=== PATIENT | male | born 1945 | race Caucasian/White ===

== ENCOUNTER 2022-06-06 09:16 | Observation (INO) ==
--- NOTE | 2022-05-14 13:14 | PAT Medication Instructions ---
Medication Instructions Date of Service May 14, 2022 Home Medications Kristal 1,400 mg PO QAM amlodipine 5 mg tablet 5 mg PO HS ascorbic acid (vitamin C) 500 mg tablet (Vitamin C) 500 mg PO QAM aspirin 81 mg capsule 81 mg PO QAM atorvastatin 40 mg tablet 40 mg PO HS famotidine 20 mg tablet 20 mg PO HS fenofibrate nanocrystallized 145 mg tablet 145 mg PO QAM finasteride 5 mg tablet 5 mg PO HS glipizide 10 mg tablet 10 mg PO BID hydrochlorothiazide 12.5 mg tablet 12.5 mg PO QAM losartan 100 mg tablet 100 mg PO HS meloxicam 15 mg tablet 15 mg PO QAM metformin 1,000 mg tablet 1,000 mg PO BID Centrum Men 50 Plus Minis) 1 tab PO QAM omega 3-dha 60 mg-epa 90 mg-fish oil 500 mg capsule, delayed release (Fish Oil) 1 cap PO QAM omeprazole 20 mg tablet,delayed release 20 mg PO QAM terazosin 10 mg capsule 10 mg PO HS ASK your surgeon for instructions meloxicam 15 mg tablet 15 mg PO QAM ASK your prescriber and surgeon aspirin 81 mg capsule 81 mg PO QAM STOP taking 2 weeks before surgery (or as soon as possible if surgery is within 2 weeks) Kristal 1,400 mg PO QAM omega 3-dha 60 mg-epa 90 mg-fish oil 500 mg capsule, delayed release (Fish Oil) 1 cap PO QAM STOP taking 48 hours before surgery fenofibrate nanocrystallized 145 mg tablet 145 mg PO QAM DO NOT take the morning of surgery ascorbic acid (vitamin C) 500 mg tablet (Vitamin C) 500 mg PO QAM glipizide 10 mg tablet 10 mg PO BID hydrochlorothiazide 12.5 mg tablet 12.5 mg PO QAM metformin 1,000 mg tablet 1,000 mg PO BID Centrum Men 50 Plus Minis) 1 tab PO QAM Take morning of surgery With a small sip of water, OTHERWISE NOTHING TO EAT OR DRINK AFTER MIDNIGHT: omeprazole 20 mg tablet,delayed release 20 mg PO QAM Take evening before surgery amlodipine 5 mg tablet 5 mg PO HS atorvastatin 40 mg tablet 40 mg PO HS famotidine 20 mg tablet 20 mg PO HS finasteride 5 mg tablet 5 mg PO HS glipizide 10 mg tablet 10 mg PO BID losartan 100 mg tablet 100 mg PO HS metformin 1,000 mg tablet 1,000 mg PO BID terazosin 10 mg capsule 10 mg PO HS Other Notes If you have any questions please call us at [phone] or [phone] or [phone] or [phone]
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
[~2022-06-06 09:16] MED LIST: ACETAMINOPHEN 500 MG TAB PO SCH; BUPIVACAINE 0.5 % 5 MG/1 ML PF 10ML VIAL ONE; CeleBREX 200 MG CAP PO SCH; FAMOTIDINE 20 MG TAB PO SCH; GABAPENTIN 300 MG CAP PO SCH; METOCLOPRAMIDE HCL 10 MG TABLET PO SCH; SODIUM CHLORIDE 0.9% 1,000 ML IV SCH; SODIUM CHLORIDE 0.9% 1000ML IV SCH; TRANEXAMIC ACID 1,000 MG **IV Intra-op IV SCH; TRANEXAMIC ACID 1,000 MG **IV Pre-op IV SCH; ceFAZolin 2000MG 2,000 MG/15 ML SYR IV SCH
[2022-06-06] MEDS ORDERED: MIDAZOLAM HCL 1 MG/ML 2ML VIAL ONE (09:34)
[2022-06-06] MEDS ORDERED: ROCURONIUM BROMIDE 10 MG/ML 5 ML VIAL IV ONE ×2 (09:34→14:33)
[2022-06-06] MEDS ORDERED: PROPOFOL IV EMULSION 10 MG/ML 20 ML VIAL IV ONE (09:34)
[2022-06-06] MEDS ORDERED: LIDOCAINE 2% MPF LOCAL 5 ML VIAL ONE (09:34)
[2022-06-06] MEDS ORDERED: fentaNYL citrate PF 100 MCG/2 ML VIAL ONE (09:34)
--- NOTE | 2022-06-06 09:34 | History & Physical Bridge Note ---
Date of Service June 06, 2022 History & Physical Bridge Note I have examined the patient, reviewed the History & Physical and in the interval since the performance of the History & Physical I have noted the following changes of clinical significance: no changes noted
[2022-06-06] MEDS ORDERED: HYDROmorphone INJ 2 MG/ML SYR/VIAL IV PRN (10:51)
[2022-06-06] MEDS ORDERED: ePHEDrine sulfate 50 MG/ML AMP IV PRN (10:51)
[2022-06-06] MEDS ORDERED: fentaNYL citrate PF 100 MCG/2 ML VIAL IV PRN (10:51)
[2022-06-06] MEDS ORDERED: ONDANSETRON INJ 2 MG/ML 2 ML VIAL IV PRN ×2 (10:51→16:14)
[2022-06-06] MEDS ORDERED: ATROPINE SULFATE 0.1 MG/ML 10ML SYR IV PRN (10:51)
--- NOTE | 2022-06-06 12:50 | Anesthesiology Progress Note ---
Date of Service June 06, 2022 Anesthesia Post Procedure Vital Signs Vital Signs: Temp Pulse Resp BP Pulse Ox O2 Del Method 06/06/22 09:39 36.9 C 94 H 20 165/61 H 97 Room Air Transfer of Care Handoff Completed per policy Notes Mental Status: alert / awake / arousable and participated in evaluation Patient Amnestic to Procedure: Yes Nausea / Vomiting: adequately controlled Pain: adequately controlled Airway Patency, RR, SpO2: stable & adequate BP & HR: stable & adequate Hydration State: stable & adequate Anesthetic Complications: no major complications apparent and Pt Satisfied with anesthetic care
[2022-06-06] MEDS ORDERED: ONDANSETRON INJ 2 MG/ML 2 ML VIAL ONE (12:53)
[2022-06-06] MEDS ORDERED: NEOSTIGMINE METHYLSULFATE 1 MG/ML 10ML VIAL ONE (14:13)
[2022-06-06] MEDS ORDERED: GLYCOPYRROLATE 0.2 MG/ML VIAL ONE (14:13)
--- NOTE | 2022-06-06 15:23 | Post Operative Brief Note ---
Immediate Post Op Note v1 Date of Surgery June 06, 2022 Pre & Post Diagnosis Operation Date: 06/06/22 11:40 Pre-Op Diagnosis: Left Shoulder Rotator Cuff Arthropathy, massive irreparable rotator cuff tear. Post-Op Diagnosis: Left Shoulder Rotator Cuff Arthropathy, massive irreparable rotator cuff tear, subacute biceps rupture with tenosynovitis. I identified the patient and participated in the time-out.: Yes Procedure Operation Date: 06/06/22 11:40 Actual Procedures p Left Reverse Total Shoulder Arthroplasty(Left), biceps tenodesis tenosynovectomy.- Orestes Spear MD Surgeon Orestes Spear MD H[employer] Leader Pavan POPE Estimated Blood Loss 125 Findings Consistent with Post-Op Diagnosis Specimens Humeral head Drains Hemovac Drain Anesthesia Type General Regional Complications none Disposition Disposition: Recovery Room Overlapping Procedure I was immediately available: during the entire case.
--- NOTE | 2022-06-06 15:42 | Operative Report ---
Post Operative Report Pre & Post Diagnosis Operation Date: 06/06/22 11:40 Pre-Op Diagnosis: Left Shoulder Rotator Cuff Arthropathy, massive irreparable rotator cuff tear. Post-Op Diagnosis: Left Shoulder Rotator Cuff Arthropathy, massive irreparable rotator cuff tear w ith anterior shoulder instability and subacute long head biceps rupture with biceps tenosynovitis. I identified the patient and participated in the time-out.: Yes Procedure Operation Date: 06/06/22 11:40 Actual Procedures p Left Reverse Total Shoulder Arthroplasty(Left), biceps tenodesis- Orestes Spear MD Surgeon Orestes Spear MD [employer] POPE Estimated Blood Loss 125 Findings Consistent with Post-Op Diagnosis Specimens Humeral head Drains 2 Hemovac Anesthesia Type General Regional Complications none Disposition Accompanied Patient To Recovery: No Indications 77-year-old male with acute on chronic injury to his left shoulder. Patient has significant weakness and chronic pain in his shoulder. MRI demonstrates a massive rotator cuff tear from the upper subscapularis through the infraspinatus with retraction of those tendon tears that were involved. There is intact teres minor and some of the lower fibers of the subscapularis and capsule are intact. Description of Procedure The patient was taken to the operating room and anesthetized under regional block and general anesthetic. The patient was positioned on the operating table in a 30 beach chair position with a towel roll under the medial border of the left scapula. The arm was draped free to be able to manipulate the shoulder as needed. The left upper extremity was prepped and draped in usual sterile fashion. Exam demonstrated anterior instability with abduction external rotation with a substantial anterior subluxation close to full dislocation with that motion. Patient had good passive range of motion otherwise with full range of motion.. An anterior deltopectoral approach was performed. A longitudinal incision was made in the deltopectoral interval. The skin was incised sharply. Subcutaneous flaps were elevated off the fascia. The cephalic vein was dissected out and retracted lateral with the deltoid. The clavipectoral fascia was divided at the lateral margin of the conjoined tendon and extended up to the CA ligament. The following findings were noted: The upper subscapularis was torn and there was a few fibers of the lower subscapularis and thin capsule still attached to the lesser tuberosity area. There was chronic bursitis over the rotator cuff. The superior rotator cuff had a large retracted supraspinatus tendon and infraspinatus tendon tear with marked degeneration of the ends of the tendon tissue which would have been nonrepairable. The teres minor still intact. There were multiple spurs over the lesser tuberosity upper aspect and articular margin consistent with most likely chronic rotator cuff tear and some acute tear including a subacute biceps rupture.. The upper centimeter of the pectoralis was released for inferior exposure. A self-retaining retractor was placed. The biceps tendon findings demonstrated th at there was marked biceps tenosynovitis surrounding the end of the biceps which was just at the level of the falciform ligament and pectoralis tendon. The end had frayed tissue and no major scar tissue over it which would be more consistent with a subacute type tear that happened more recently. I did a thorough tenosynovectomy in the biceps sheath where there was thickened biceps tendon sheath tissue and inflamed tissue in that area. I then grabbed the biceps tendon with an Allis clamp and freed up any scarred tenosynovium off the biceps I was able to retract it proximally and then tenodesis it to the pectoralis with [id number] #2 FiberWire suture. The axillary nerve was identified with a tug test. The subscapularis tendon was then taken down off of the lesser tuberosity subperiosteally with a peel technique, a Vicryl traction suture was placed and a subperiosteal dissection was performed along the neck of the humerus as the arm was gradually externally rotated exposing the humeral head. The humeral head findings demonstrated some grade 2 articular changes at the superior head otherwise intact articular cartilage and some small inferior osteophytes.. retractors were readjusted and the inferior osteophytes were all resected using a small rongeur. Osteophytes over the lesser tuberosity and greater tuberosity area were removed with the rongeur. Jacinto elevator was used to assist in releasing the capsule off the neck of the humerus. A Fukuda retractor was placed into the joint retracting the humeral head posterior. Glenoid findings demonstrated minor arthritic changes intact articular cartilage. Absent biceps tendon.. The labrum was resected. an anterior- inferior and posterior inferior capsular release were performed with electrocautery and a Jacinto elevator on bone with the axillary nerve protected inferiorly by the retractor. Attention was then taken to the humeral preparation. The cutting guide was placed into the humeral head. It was positioned at 20 of retroversion. Oscillating saw was used to resect the humeral head giving the cut above the level of the posterior rotator cuff insertion site. The humerus was then prepared for the stem. I used the ascend flex stem from [employer]. The sizing broaches were used followed by trial broaches up to a size 4B long which had the appropriate fit and fill. The appropriate sized cut protector was placed. The humerus was then retracted posterior to the glenoid. The glenoid was sized for a 29 baseplate. The guide for the baseplate was positioned in a 10 inferior tilt and the central drill ho le was made. The reamer for the 29 baseplate was used. The central drill was widened for the peg. The aequalis hydroxyapatite-coated 29 mm baseplate with a standard post was impacted into position. The base plate was transfixed with superior and inferior locking screws and anterior and posterior compression screws with stable fixation. The fan reamer was used for the 42 millimeter glenoid sphere. After irrigation the 42 mm standard symmetrical glenoid sphere was impacted onto the baseplate and the security screw was tightened. Attention was taken back to the humerus. The cut protector was removed and the plus or high offset humeral tray trial was assembled to the trial stem rotated appropriately to get bony coverage and then screwed in position. A trial reduction was performed. A +6, 42 mm reversed trial insert demonstrated good stability and no shuck. The trials were removed. 3 drill holes are made into the harder bone in the bicipital groove area and 3 #5 FiberWire sutures were placed transosseously. The canal was irrigated with pulse saline solution . The final component was assembled. The final component was 4B long PTC stem assembled to +0 high offset tray and a 42+6 mm reversed polyethylene insert. This was then impacted into the humerus with a tight press-fit. It was reduced to the glenoid sphere. Stability was verified. Subscapularis and capsule was repaired in 1 layer with the #5 FiberWire sutures using Jimi-Billy suture technique. The pectoralis was repaired with #2 FiberWire [id number] sutures reinforcing the biceps tendon tenodesis. The arm was taken through a range of motion which demonstrated 150 degrees flexion 100 degrees abduction and 60 degrees external rotation without any tension on repair. The implant was stable through the range of motion tested. The wound was copiously irrigated. 2 Hemovac drains were placed. The deltopectoral interval was closed with [id number] #1 Vicryl sutures. The subcutaneous tissues were closed with 2- 0 Vicryl sutures. The skin was closed with chi. Sterile dressings were applied and a shoulder immobilizer. Chidi POPE, my physician expanded function dental assistant acted as first aid director throughout the procedure .He performed functions including patient positioning, arm positioning, prepping and draping, soft tissue retraction, instrument management, suture management and performed the subcutaneous and skin closure and will participate in the postoperative care of the patient. I attest to the content of the Intraoperative Record and any orders documented therein. Any exceptions are noted below.
--- NOTE | 2022-06-06 16:12 | XRay Report ---
LEFT SHOULDER 2 VIEWS CLINICAL HISTORY: Postoperative examination. FINDINGS: 2 portable views of the left shoulder are obtained. The skeletal structures are osteopenic. A left shoulder arthroplasty is in near anatomic alignment. No acute fracture is seen. Mild degenera tive change is noted at the acromioclavicular joint. Skin clips, a surgical drain, subcutaneous gas, and soft tissue swelling overlying the left shoulder are expected postoperative findings. The left nancy ng parenchyma is clear as visualized noting basilar atelectasis. IMPRESSION: Expected postoperative findings status post left shoulder arthroplasty. No acute fracture is seen. Electronically signed by: Jeff Crain M.D. 06/06/2022 4:11 PM
[2022-06-06] MEDS ORDERED: MAGNESIUM HYDROXIDE SUSP 30 ML UDC PO PRN (16:14)
[2022-06-06] MEDS ORDERED: HYDROmorphone INJ 0.5 MG/0.5 ML SYR IV PRN (16:14)
[2022-06-06] MEDS ORDERED: NALOXONE HCL 0.4 MG/1 ML VIAL/CARP IV PRN (16:14)
[2022-06-06] MEDS ORDERED: PHARMACY GLYCEMIC MGMT CONSULT PRN (16:14)
[2022-06-06] MEDS ORDERED: bisacodyL 10 MG SUPP PR PRN (16:14)
[2022-06-06] MEDS ORDERED: METOCLOPRAMIDE HCL INJ 5 MG/ML 2 ML VIAL IV PRN (16:14)
--- NOTE | 2022-06-06 16:17 | Anesthesiology Progress Note ---
Date of Service June 06, 2022 Anesthesia Post Procedure Vital Signs Vital Signs: Temp Pulse Pulse Resp BP Pulse Ox O2 Del Method 06/06/22 15:40 73 18 122/64 94 Oxymask 06/06/22 15:51 36.4 C L 68 14 116/58 L 94 Nasal Cannula 06/06/22 15:30 68 15 131/55 L 95 Oxymask 06/06/22 15:22 36.0 C L 80 18 123/58 L 98 Oxymask 06/06/22 09:39 36.9 C 94 H 20 165/61 H 97 Room Air O2 Flow Rate 06/06/22 15:40 3 06/06/22 15:51 3 06/06/22 15:30 4 06/06/22 15:22 5 06/06/22 09:39 Transfer of Care Handoff Completed per policy Notes Mental Status: alert / awake / arousable and participated in evaluation Patient Amnestic to Procedure: Yes Nausea / Vomiting: adequately controlled Pain: adequately controlled Airway Patency, RR, SpO2: stable & adequate BP & HR: stable & adequate Hydration State: stable & adequate Anesthetic Complications: no major complications apparent and Pt Satisfied with anesthetic care
[2022-06-06] MEDS: SODIUM CHLORIDE 0.9% 1000ML 1,000 ML IV SCH (16:27)
[2022-06-06] MEDS: INSULIN ASPART PER UNIT CHARGE SC SCH ×2 (17:13→21:50)
[2022-06-06] MEDS: DOCUSATE SODIUM 100 MG CAP PO SCH (19:51)
[2022-06-06] MEDS: ceFAZolin 2000MG 2,000 MG/15 ML SYR IV SCH (19:56)
--- NOTE | 2022-06-06 20:18 | Pharmacy Report ---
Pharmacy Glycemic Short Note 2 - Date of Service June 06, 2022 - Glycemic Short BSG Results (Last 24 hours): 06/06/22 06/06/22 06/06/22 09:47 15:25 16:40 POC Glucose 188 H 164 H 157 H OUTPATIENT ANTIDIABETIC REGIMEN: * glipizide, metformin * A1c 6.2% ASSESSMENT: * 77 year old s/p shoulder arthroplasty, managed on oral antidiabetic agents at home. Pharmacy consulted for glycemic management. Postop BSGs in 160s, will add novolog ACHS. No steroids given * Likely could resume oral agents tomorrow if BSGs stable PLAN FOR INPATIENT GLYCEMIC CONTROL: * Hold outpatient oral diabetes medications * Basal insulin * Lantus - hold * Bolus insulin * NovoLog per scale ACHS or Q6hrs while NPO * Goal Range: Low 110 mg/dL - High 140 mg/dL * Correction Factor: 30 mg/dL/unit * Nutritional / Prandial insulin per carb ratio of 1 unit per 12 grams CHO consumed
[2022-06-06] MEDS ORDERED: FAMOTIDINE 20 MG TAB PO SCH (21:00)
[2022-06-06] MEDS ORDERED: SENNA 8.6 MG TAB PO SCH (21:00)
[2022-06-06] MEDS ORDERED: TERAZOSIN HCL 5 MG CAP PO SCH (21:00)
[2022-06-06] MEDS ORDERED: ATORVASTATIN 40 MG TAB PO SCH (21:00)
[2022-06-06] MEDS ORDERED: FINASTERIDE 5 MG TAB PO SCH (21:00)
[2022-06-06] MEDS: ACETAMINOPHEN 500 MG TAB PO SCH (21:47)
[2022-06-07] MEDS: oxyCODONE HCL IR 5 MG TAB (IMMEDIATE RELEASE) PO PRN ×3 (01:49→12:41)
[2022-06-07] MEDS: SODIUM CHLORIDE 0.9% 1000ML 1,000 ML IV SCH (01:52)
[2022-06-07] MEDS: ceFAZolin 2000MG 2,000 MG/15 ML SYR IV SCH (05:27)
[2022-06-07] MEDS: ACETAMINOPHEN 500 MG TAB PO SCH (05:27)
[2022-06-07 06:18] LABS: Basophils # (auto) 0.02 K/uL (0-0.2); Basophils % (auto) 0.2 %; Eosinophils # (auto) 0.11 K/uL (0-0.50); Eosinophils % (auto) 1.3 %; Hematocrit (blood only) 29.9 % (42.0-52.0); Hemoglobin 10.2 g/dl (14.0-18.0); Immature Granulocytes # (auto) 0.04 K/uL (0.01-0.20); Immature Granulocytes % (auto) 0.5 %; Lymphocytes # (auto) 0.74 K/uL (1.2-3.4); Lymphocytes % (auto) 8.6 %; Mean Corpuscular Hemoglobin 30.2 pg (25.0-34.0); Mean Corpuscular Hgb Conc 34.1 g/dL (32.0-36.0); Mean Corpuscular Volume 88.5 fL (80.0-100.0); Mean Platelet Volume 9.9 fL (9.4-12.4); Neutrophils # (auto) 7.07 K/uL (1.40-6.50); Neutrophils % (auto) 82.4 %; Platelet Count 194 K/uL (130-400); RDW Coefficient of Variation 13.3 % (11.5-14.5); RDW Standard Deviation 43.4 fL (36.4-46.3); Red Blood Count 3.38 M/uL (4.70-6.10); White Blood Count 8.58 K/ul (4.8-10.8)
[2022-06-07 06:33] LABS: BUN Creatinine Ratio 15.3 (10-20); Calcium 8.6 mg/dl (8.6-10.3); Creatinine Clr Calc Pharmacy 51.5 ml/min; Est GFR (African American) 54.7 ml/min; Est GFR (Non-African American) 47.2 ml/min; Potassium 3.7 mmol/L (3.5-5.1)
[2022-06-07] MEDS: DOCUSATE SODIUM 100 MG CAP PO SCH (07:31)
[2022-06-07] MEDS ORDERED: GLUCOSE 40% GEL 15 GM TUBE PO PRN (07:45)
[2022-06-07] MEDS ORDERED: GLUCAGON FOR INJ 1 MG VIAL IM PRN (07:45)
[2022-06-07] MEDS ORDERED: GLUCOSE 10 TAB/TUBE PO PRN (07:45)
[2022-06-07] MEDS ORDERED: CARBOHYDRATES FOR HYPOGLYCEMIA PO PRN (07:45)
[2022-06-07] MEDS ORDERED: DEXTROSE 50% 50 ML SYRINGE IV PRN (07:45)
--- NOTE | 2022-06-07 08:03 | Orthopedic Progress Note ---
Date of Service June 07, 2022 Assessment & Plan (1) Rotator cuff arthropathy of left shoulder: Plan: Postop day #1 left reverse total shoulder arthroplasty -PT/OT: No formal therapy on the shoulder at this time. Patient will perform home exercises as instructed. -DVT prophylaxis: SCDs, aspirin 81 mg daily -Pain management as written -AM labs: Hemoglobin 10.2 this morning from 11.1 preop. His creatinine is at 1.44 which is improved from his baseline preop labs of 2.05. Discharge plan: Plan on discharge home today. Admission and Anticipated Discharge Date Admission Date: June 06, 2022 Subjective Patient is postop day #1 left reverse total shoulder arthroplasty. He is doing well this morning. Had some pain overnight but now is much better controlled. No current complaints. Denies chest pain, shortness of breath, dizziness/lightheadedness, headaches, nausea/vomiting/diarrhea. Physical Exam Physical Exam: Left shoulder: Dressing is clean, dry, intact. Sling in place. Fingers are mobile with good fuel cell systems engineer strength. Distally neurovascular status and sensation grossly intact. Constitutional: WD/WN, vitals as above Results & Data Vital Signs (Past 12 Hours) Vital Signs Temp Pulse Resp BP Pulse Ox O2 Del Method 06/07/22 07:24 36.7 C 88 17 150/73 H 93 Room Air 06/07/22 03:44 36.6 C 82 18 150/75 H 96 Room Air 06/06/22 23:39 36.5 C 82 18 134/70 95 Room Air Laboratory Results Lab Results 06/06/22 06/06/22 06/06/22 Range/Units 09:26 09:47 15:25 WBC (4.8-10.8) K/ul RBC (4.70-6.10) M/uL Hgb (14.0-18.0) g/dl Hct (42.0-52.0) % MCV (80.0-100.0) fL MCH (25.0-34.0) pg MCHC (32.0-36.0) g/dL RDW Std Deviation (36.4-46.3) fL RDW Coeff of Demian (11.5-14.5) % Plt Count (130-400) K/uL MPV (9.4-12.4) fL Immature Gran % (Auto) % Neut % (Auto) % Lymph % (Auto) % [place] % (Auto) % Eos % (Auto) % Baso % (Auto) % Neut # (Auto) (1.40-6.50) K/uL Lymph # (Auto) (1.2-3.4) K/uL [place] # (Auto) (0.11-0.59) K/uL Eos # (Auto) (0-0.50) K/uL Baso # (Auto) (0-0.2) K/uL Immature Gran # (Auto) (0.01-0.20) K/uL Sodium (136-145) mmol/L Potassium (3.5-5.1) mmol/L Chloride (98-107) mmol/L Carbon Dioxide (21-32) mmol/L Anion Gap (3-11) BUN (6-23) mg/dl Creatinine (0.6-1.4) mg/dl Est Cr Clr Drug Dosing ml/min Est GFR ( Amer) ml/min Est GFR (Non-Af Amer) ml/min BUN/Creatinine Ratio (10-20) Glucose (70-99(Fasting)) mg/dl POC Glucose 188 H 164 H (70-99) mg/dl Calcium (8.6-10.3) mg/dl SARS-CoV-2, RNA, NAAT NEGATIVE (NEGATIVE) 06/06/22 06/06/22 06/07/22 Range/Units 16:40 21:15 05:27 WBC 8.58 (4.8-10.8) K/ul RBC 3.38 L (4.70-6.10) M/uL Hgb 10.2 L (14.0-18.0) g/dl Hct 29.9 L (42.0-52.0) % MCV 88.5 (80.0-100.0) fL MCH 30.2 (25.0-34.0) pg MCHC 34.1 (32.0-36.0) g/dL RDW Std Deviation 43.4 (36.4-46.3) fL RDW Coeff of Demian 13.3 (11.5-14.5) % Plt Count 194 (130-400) K/uL MPV 9.9 (9.4-12.4) fL Immature Gran % (Auto) 0.5 % Neut % (Auto) 82.4 % Lymph % (Auto) 8.6 % [place] % (Auto) 7.0 % Eos % (Auto) 1.3 % Baso % (Auto) 0.2 % Neut # (Auto) 7.07 H (1.40-6.50) K/uL Lymph # (Auto) 0.74 L (1.2-3.4) K/uL [place] # (Auto) 0.60 H (0.11-0.59) K/uL Eos # (Auto) 0.11 (0-0.50) K/uL Baso # (Auto) 0.02 (0-0.2) K/uL Immature Gran # (Auto) 0.04 (0.01-0.20) K/uL Sodium (136-145) mmol/L Potassium (3.5-5.1) mmol/L Chloride (98-107) mmol/L Carbon Dioxide (21-32) mmol/L Anion Gap (3-11) BUN (6-23) mg/dl Creatinine (0.6-1.4) mg/dl Est Cr Clr Drug Dosing ml/min Est GFR ( Amer) ml/min Est GFR (Non-Af Amer) ml/min BUN/Creatinine Ratio (10-20) Glucose (70-99(Fasting)) mg/dl POC Glucose 157 H 141 H (70-99) mg/dl Calcium (8.6-10.3) mg/dl SARS-CoV-2, RNA, NAAT (NEGATIVE) 06/07/22 06/07/22 Range/Units 05:27 07:50 WBC (4.8-10.8) K/ul RBC (4.70-6.10) M/uL Hgb (14.0-18.0) g/dl Hct (42.0-52.0) % MCV (80.0-100.0) fL MCH (25.0-34.0) pg MCHC (32.0-36.0) g/dL RDW Std Deviation (36.4-46.3) fL RDW Coeff of Demian (11.5-14.5) % Plt Count (130-400) K/uL MPV (9.4-12.4) fL Immature Gran % (Auto) % Neut % (Auto) % Lymph % (Auto) % [place] % (Auto) % Eos % (Auto) % Baso % (Auto) % Neut # (Auto) (1.40-6.50) K/uL Lymph # (Auto) (1.2-3.4) K/uL [place] # (Auto) (0.11-0.59) K/uL Eos # (Auto) (0-0.50) K/uL Baso # (Auto) (0-0.2) K/uL Immature Gran # (Auto) (0.01-0.20) K/uL Sodium 140 (136-145) mmol/L Potassium 3.7 (3.5-5.1) mmol/L Chloride 109 H (98-107) mmol/L Carbon Dioxide 23 (21-32) mmol/L Anion Gap 8 (3-11) BUN 22 (6-23) mg/dl Creatinine 1.44 H (0.6-1.4) mg/dl Est Cr Clr Drug Dosing 51.5 ml/min Est GFR ( Amer) 54.7 ml/min Est GFR (Non-Af Amer) 47.2 ml/min BUN/Creatinine Ratio 15.3 (10-20) Glucose 178 H (70-99(Fasting)) mg/dl POC Glucose 184 H (70-99) mg/dl Calcium 8.6 (8.6-10.3) mg/dl SARS-CoV-2, RNA, NAAT (NEGATIVE)
[2022-06-07] MEDS: INSULIN ASPART PER UNIT CHARGE SC SCH ×2 (08:39→12:21)
[2022-06-07] MEDS ORDERED: LANTUS PER UNIT CHARGE SQ SCH (09:00)
[2022-06-07] MEDS ORDERED: MULTIVITAMIN TAB PO SCH (09:00)
[2022-06-07] MEDS ORDERED: ASPIRIN 81 MG ECTAB PO SCH (09:00)
[2022-06-07] MEDS ORDERED: PANTOprazole 40 MG TAB PO SCH (09:00)
[2022-06-07] MEDS ORDERED: hydroCHLOROthiazide 25 MG TAB PO SCH (09:00)
[2022-06-07] MEDS ORDERED: FENOFIBRATE NANOCRYSTALLIZED 145 MG TABLET PO SCH (09:00)
[2022-06-07] MEDS ORDERED: ASCORBIC ACID 500 MG TAB PO SCH (09:00)
--- NOTE | 2022-06-07 09:49 | Pharmacy Report ---
Pharmacy Glycemic Short Note 2 - Date of Service June 07, 2022 - Glycemic Short BSG Results (Last 24 hours): 06/06/22 06/06/22 06/06/22 09:47 15:25 16:40 Glucose POC Glucose 188 H 164 H 157 H 06/06/22 06/07/22 06/07/22 21:15 05:27 07:50 Glucose 178 H POC Glucose 141 H 184 H OUTPATIENT ANTIDIABETIC REGIMEN: * Glipizide 10 mg PO BIDM * Metformin 1000 mg PO BIDM * HbA1c: 6.2% (05/18/22) ASSESSMENT: 06/07: * Juan F received 6 units of bolus insulin last evening. BSGs were: 157 and 141 mg/dL. * Fasting BSG was 184 mg/dL this AM. Despite patient receiving no steroids will give a one time dose of basal this AM to cover for stress-induced hyperglycemia. * Tightened carb ratio slightly this AM as patient starts to tolerate diet better. 06/06: * 77 year old s/p shoulder arthroplasty, managed on oral antidiabetic agents at home. Pharmacy consulted for glycemic management. Postop BSGs in 160s, will add novolog ACHS. No steroids given * Likely could resume oral agents tomorrow if BSGs stable PLAN FOR INPATIENT GLYCEMIC CONTROL: * Hold outpatient oral diabetes medications * Basal insulin * Lantus 15 units SC x 1 * Bolus insulin * NovoLog per scale ACHS or Q6hrs while NPO * Goal Range: Low 110 mg/dL - High 140 mg/dL * Correction Factor: 30 mg/dL/unit * Nutritional / Prandial insulin per carb ratio of 1 unit per 10 grams CHO consumed
[2022-06-07] MEDS ORDERED: amLODIPine BESYLATE 5 MG TAB PO SCH (21:00)
[2022-06-07] MEDS ORDERED: LOSARTAN POTASSIUM 50 MG TAB PO SCH (21:00)
--- NOTE | 2022-06-10 18:00 | Discharge Summary ---
Date of Service June 10, 2022 Admission HPI Per Admitting Provider 77yo male with PMHx significant for HTN, high cholesterol, DM2 who presents with ongoing left shoulder pain. He has pain interfering with his daily activities. He has failed conservative measures including therapy and injections. He would like to proceed with surgical intervention. Patient denies headaches, sweats, fevers, chills, double vision, blurred vision, cough, sore throat, dysphagia, chest pain, sob, wheezing, n/v/d/c, numbness, tingling, fatigue, urinary symptoms, mood disorders. ROS positive for left shoulder pain and stiffness. Admission Exam Per Admitting Provider Constitutional: well developed and well nourished; no acute distress Eyes: PERRL, conjunctivae normal, anicteric sclerae ENMT: external ear and nose normal, oropharynx normal Neck: trachea midline, no thyromegaly Respiratory: normal respiratory effort, lungs clear to auscultation Cardiovascular: RRR, no murmur, no edema Musculoskeletal: Left shoulder: Crepitation with ROM. Tenderness anterolateral acromion. Positive impingement signs. Abduction to 150 degrees, FF to 170 degrees. Weakness and pain with strength testing. Abduciton 3+/5, FF 3+/5, ER 4-/5, IR 5-/5 Skin: no rashes, warm and dry Neurologic: patellar DTR's 2+ bilat, sensation intact Psychiatric: A+Ox3, euthymic affect Principal Diagnosis Left shoulder rotator cuff arthropathy Discharge Exam Left shoulder: Dressing is clean, dry, intact. Sling in place. Fingers are mobile with good presser all around strength. Distally neurovascular status and sensation grossly intact. Constitutional WD/WN, vitals as above Discharge Data Allergies Allergy/AdvReac Type Severity Reaction Status Date / Time No Known Allergies Allergy Verified 06/06/22 09:43 Consultations 06/06/22 05:00 Consult Hospitalist Routine Procedures Performed Operation Date: 06/06/22 11:40 Actual Procedures p Left Reverse Total Shoulder Arthroplasty(Left) - Orestes Spear MD Ordered Studies 06/06/22 05:00 US - OR guided needle placemen Routine Hospital Course (1) Rotator cuff arthropathy of left shoulder: Postop day #1 left reverse total shoulder arthroplasty -PT/OT: No formal therapy on the shoulder at this time. Patient will perform home exercises as instructed. -DVT prophylaxis: SCDs, aspirin 81 mg daily -Pain management as written -AM labs: Hemoglobin 10.2 this morning from 11.1 preop. His creatinine is at 1.44 which is improved from his baseline preop labs of 2.05. Discharge plan: Plan on discharge home today. Lab Results 06/06/22 06/06/22 06/06/22 Range/Units 09:26 09:47 15:25 WBC (4.8-10.8) K/ul RBC (4.70-6.10) M/uL Hgb (14.0-18.0) g/dl Hct (42.0-52.0) % MCV (80.0-100.0) fL MCH (25.0-34.0) pg MCHC (32.0-36.0) g/dL RDW Std Deviation (36.4-46.3) fL RDW Coeff of Demian (11.5-14.5) % Plt Count (130-400) K/uL MPV (9.4-12.4) fL Immature Gran % (Auto) % Neut % (Auto) % Lymph % (Auto) % [place] % (Auto) % Eos % (Auto) % Baso % (Auto) % Neut # (Auto) (1.40-6.50) K/uL Lymph # (Auto) (1.2-3.4) K/uL [place] # (Auto) (0.11-0.59) K/uL Eos # (Auto) (0-0.50) K/uL Baso # (Auto) (0-0.2) K/uL Immature Gran # (Auto) (0.01-0.20) K/uL Sodium (136-145) mmol/L Potassium (3.5-5.1) mmol/L Chloride (98-107) mmol/L Carbon Dioxide (21-32) mmol/L Anion Gap (3-11) BUN (6-23) mg/dl Creatinine (0.6-1.4) mg/dl Est Cr Clr Drug Dosing ml/min Est GFR ( Amer) ml/min Est GFR (Non-Af Amer) ml/min BUN/Creatinine Ratio (10-20) Glucose (70-99(Fasting)) mg/dl POC Glucose 188 H 164 H (70-99) mg/dl Calcium (8.6-10.3) mg/dl SARS-CoV-2, RNA, NAAT NEGATIVE (NEGATIVE) 06/06/22 06/06/22 06/07/22 Range/Units 16:40 21:15 05:27 WBC 8.58 (4.8-10.8) K/ul RBC 3.38 L (4.70-6.10) M/uL Hgb 10.2 L (14.0-18.0) g/dl Hct 29.9 L (42.0-52.0) % MCV 88.5 (80.0-100.0) fL MCH 30.2 (25.0-34.0) pg MCHC 34.1 (32.0-36.0) g/dL RDW Std Deviation 43.4 (36.4-46.3) fL RDW Coeff of Demian 13.3 (11.5-14.5) % Plt Count 194 (130-400) K/uL MPV 9.9 (9.4-12.4) fL Immature Gran % (Auto) 0.5 % Neut % (Auto) 82.4 % Lymph % (Auto) 8.6 % [place] % (Auto) 7.0 % Eos % (Auto) 1.3 % Baso % (Auto) 0.2 % Neut # (Auto) 7.07 H (1.40-6.50) K/uL Lymph # (Auto) 0.74 L (1.2-3.4) K/uL [place]eller # (Auto) 0.60 H (0.11-0.59) K/uL Eos # (Auto) 0.11 (0-0.50) K/uL Baso # (Auto) 0.02 (0-0.2) K/uL Immature Gran # (Auto) 0.04 (0.01-0.20) K/uL Sodium (136-145) mmol/L Potassium (3.5-5.1) mmol/L Chloride (98-107) mmol/L Carbon Dioxide (21-32) mmol/L Anion Gap (3-11) BUN (6-23) mg/dl Creatinine (0.6-1.4) mg/dl Est Cr Clr Drug Dosing ml/min Est GFR ( Amer) ml/min Est GFR (Non-Af Amer) ml/min BUN/Creatinine Ratio (10-20) Glucose (70-99(Fasting)) mg/dl POC Glucose 157 H 141 H (70-99) mg/dl Calcium (8.6-10.3) mg/dl SARS-CoV-2, RNA, NAAT (NEGATIVE) 06/07/22 06/07/22 06/07/22 Range/Units 05:27 07:50 11:53 WBC (4.8-10.8) K/ul RBC (4.70-6.10) M/uL Hgb (14.0-18.0) g/dl Hct (42.0-52.0) % MCV (80.0-100.0) fL MCH (25.0-34.0) pg MCHC (32.0-36.0) g/dL RDW Std Deviation (36.4-46.3) fL RDW Coeff of Demian (11.5-14.5) % Plt Count (130-400) K/uL MPV (9.4-12.4) fL Immature Gran % (Auto) % Neut % (Auto) % Lymph % (Auto) % [place] % (Auto) % Eos % (Auto) % Baso % (Auto) % Neut # (Auto) (1.40-6.50) K/uL Lymph # (Auto) (1.2-3.4) K/uL [place] # (Auto) (0.11-0.59) K/uL Eos # (Auto) (0-0.50) K/uL Baso # (Auto) (0-0.2) K/uL Immature Gran # (Auto) (0.01-0.20) K/uL Sodium 140 (136-145) mmol/L Potassium 3.7 (3.5-5.1) mmol/L Chloride 109 H (98-107) mmol/L Carbon Dioxide 23 (21-32) mmol/L Anion Gap 8 (3-11) BUN 22 (6-23) mg/dl Creatinine 1.44 H (0.6-1.4) mg/dl Est Cr Clr Drug Dosing 51.5 ml/min Est GFR ( Amer) 54.7 ml/min Est GFR (Non-Af Amer) 47.2 ml/min BUN/Creatinine Ratio 15.3 (10-20) Glucose 178 H (70-99(Fasting)) mg/dl POC Glucose 184 H 172 H (70-99) mg/dl Calcium 8.6 (8.6-10.3) mg/dl SARS-CoV-2, RNA, NAAT (NEGATIVE) Total Time Total Time Spent Total Time Spent (In Minutes): 20 Discharge Plan Discharge Items Patient Disposition: Home - Self-Care Reason For Visit: POST OP Discharge Diagnosis: Left shoulder rotator cuff arthropathy Activity: Per Instructions section Non-emergency contact: Surgeon Call non-emergency contact if: you have any medication questions, your pain is not controlled, your pain is concerning for you, you have a fever, your temperature is above 101, your wound has increased redness and your wound has increased drainage Follow-up/Referrals: Ozzy Morin, [Primary Care Provider] - Diet: Regular Addtl Attending Provider Instructions: ACTIVITY RECOMMENDATIONS: SELF CARE INSTRUCTIONS AFTER TOTAL SHOULDER ARTHROPLASTY REVERSE A. You may do daily exercises as taught in physical therapy while in hospital. No lifting with the operative arm. B. You are to wear your sling/immobilizer at all times EXCEPT when performing your daily exercises and for hygiene purposes. C. You may perform dry, daily dressing changes. Please keep your incision covered. You may shower 48 hours after surgery. Do not apply soap or any ointment/lotions directly over incision. Do not soak incision in bath tub/swimming pool. D. You may use ice as needed to operative shoulder. SPECIAL CARE INSTRUCTIONS: VERY IMPORTANT TO READ AND REVIEW A. There are a few signs you need to watch for after you are home. Call [facility] at [phone] if you experience any of the followin. Increased severe shoulder pain. Some pain is expected especially when you exercise. 2. Increased swelling in you shoulder or arm; pain or swelling in either upper extremity. 3. Any fluid drainage from the incision. 4. Shortness of breath or chest pain. B. Please call [facility] at [phone] if you have any questions or concerns about your operation or recovery. C. Call your physician if: 1. Temperature is greater than 101 degrees (F). 2. Pain is not relieved by prescribed pain medications. 3. Increase drainage or redness from incision. 4. Unanswered questions or concerns. FOLLOW UP VISIT: Please call [facility] at [phone] to schedule a follow up appointment with Dr. Spear or his PA in 12-14 days from your surgery date. Stand-Alone Forms: My [facility], Smoking Cessation Medications and DC Order Prescriptions: New oxycodone 5 mg Tablet 5 - 10 mg PO .q4h-6h MDD 6 PRN (Reason: pain) Qty: 30 0RF Rx Instructions: Ongoing therapy, DR. Spear supervising acetaminophen [Tylenol Extra Strength] 500 mg Tablet 1,000 mg PO Q8 Qty: 60 0RF cefadroxil 500 mg capsule 500 mg PO BID Qty: 28 0RF Continued atorvastatin 40 mg Tablet 40 mg PO HS glipizide 10 mg Tablet 10 mg PO BID amlodipine 5 mg Tablet 5 mg PO HS famotidine 20 mg Tablet 20 mg PO HS metformin 1,000 mg Tablet 1,000 mg PO BID losartan 100 mg Tablet 100 mg PO HS terazosin 10 mg Capsule 10 mg PO HS finasteride 5 mg Tablet 5 mg PO HS fenofibrate nanocrystallized 145 mg Tablet 145 mg PO QAM hydrochlorothiazide 12.5 mg Tablet 12.5 mg PO QAM omeprazole 20 mg Tablet,Delayed Release (Dr/Ec) 20 mg PO QAM ascorbic acid (vitamin C) [Vitamin C] 500 mg Tablet 500 mg PO QAM Fish Oil 60-90-500 mg Capsule,Delayed Release(Dr/Ec) 1 cap PO QAM aspirin 81 mg Capsule 81 mg PO QAM Centrum Men 50 Plus Minis [id number] mcg Tablet 1 tab PO QAM Kristal 1,400 mg PO QAM Discontinued meloxicam 15 mg Tablet 15 mg PO QAM Discharge Orders: Discharge Order (Routine); Ordered 06/07/22 Ordered By: Pavan Almaguer Admission Data Admit Date/Time: 06/06/22 15:25 Attending Provider: Orestes Spear Admit Provider: Orestes Spear Primary Care Provider: Ozzy Morin Other Providers: Walter Maya Thomas E. Other Interventions: Discharge Summary Assessment (RN) Last Done: 06/07/22 08:31
== END 2022-06-07 13:16 | disposition home or self-care (01) ==
LOC: ASU 09:16 → 3E 09:16